=== PATIENT | male | born 1965 | race Caucasian/White ===

== ENCOUNTER → 2017-01-31 | Outpatient (CLI) | payer BC, OTHER ==
[~2017-01-31] MED LIST: CHOL200012 PO; CHOL20003 PO; ENOX150S5 SQ; ENOX40SY4 SQ; ESOM40CA PO; FERR1TAB2 PO; FERR325T20 PO; FURO-92 PO; GLIP10TA13 PO; GUAI200T3 PO; HYDR25TA6 PO; INSU100V5 SQ-INSULIN; IRON SUPPLEMENT; LEVO750T26 PO; LIDOCAINE 1%, 20ML ONE; LORA0.5T PO; LOSA100T6 PO; LOVA20TA2 PO; LOVENOX SC; METF10002 PO; METO50TA82 PO; METOPROLOL PO; ONDA4TAB7 PO; ONDA8TAB16 SL; OXYC5CAP4 PO; OXYC5TAB3 PO; PIPE3.373 IV; POLY17PO5 PO; POTA20TA14 PO; SENN1TAB7 PO; SODIUM BICARBONATE 4.2%, 5ML ONE; SPIR1TAB3 PO; SPIR25TA3 PO; SUCR1ORA2 PO; WARF10TA6 PO
== END | disposition home or self-care (01) ==
LOC: RAD 06:40 → EDSTATUS 07:30
PROVIDERS: ATTEND Internal Medicine Hematology & Oncology
DX: C18.9 Malignant neoplasm of colon, unspecified (principal); R59.1 Generalized enlarged lymph nodes
CPT/HCPCS: 38505; 77012; 88305; J3490; 88341; 88342; G0461